=== PATIENT | male | born 1995 | race Two or more races ===

== ENCOUNTER 2018-10-30 11:55 | Emergency (ER) | payer SELFPAY ==
[~2018-10-30] VITALS: Ht 175.3 cm; Wt 97.5 kg
[2018-10-30 13:31] VITALS: BP 129/64
[2018-10-30] MEDS ORDERED: KETOROLAC TROMETH 60MG/2ML VIAL IM ONE (14:00)
== END 2018-10-30 14:30 | disposition home or self-care (01) ==
LOC: ER 12:02
DX: S39.012A Strain of muscle, fascia and tendon of lower back, initial encounter (principal); X50.1XXA Overexertion from prolonged static or awkward postures, initial encounter; Y93.89 Activity, other specified; Y99.8 Other external cause status; Y92.89 Other specified places as the place of occurrence of the external cause
CPT/HCPCS: 96372; 99283; J1885